=== PATIENT | female | born 1960 | race African-American/Black ===

== ENCOUNTER 2018-01-03 15:30 | Inpatient (IN) | payer BC ==
[2018-01-03] MEDS ORDERED: hydrALAZINE 20 MG/ML VIAL. IVP (15:45)
[2018-01-03] MEDS: amLODIPine BESYLATE 2.5 MG TABLET PO (16:13)
[2018-01-03] MEDS: amLODIPine BESYLATE 10 MG TABLET PO (16:31)
[2018-01-03 16:52] LABS: ADD MAN DIFF? NO
[2018-01-03] MEDS ORDERED: LABETALOL 20 MG/4 ML DISP.SYRIN. IVP (17:00)
[2018-01-03] MEDS: ISOSORBIDE MONONITRATE ER 30 MG TAB.ER.24H PO (17:00)
[2018-01-03 17:04] LABS: ALBUMIN 3.6 g/dL (3.4-5.0); ALBUMIN/GLOBULIN RATIO 0.7 (1.0-1.7); ALK PHOS 106 U/L (46-116); ALT (SGPT) 19 U/L (14-59); ANION GAP 5 (6-14); AST (SGOT) 18 U/L (15-37); BASO % 1 % (0-3); BLOOD UREA NITROGEN 14 mg/dL (7-20); BUN/CREATININE RATIO 14 (6-20); CALCIUM 9.4 mg/dL (8.5-10.1); CARBON DIOXIDE 29 mmol/L (21-32); CHLORIDE 107 mmol/L (98-107); EOS # 0.4 x10^3/uL (0.0-0.7); EOS % 5 % (0-3); GFR 69.1; GLUCOSE 85 mg/dL (70-99); HEMATOCRIT 34.5 % (36.0-47.0); HEMOGLOBIN 11.1 g/dL (12.0-15.5); LYMPH # 3.1 x10^3/uL (1.0-4.8); LYMPH % 37 % (24-48); MAGNESIUM 2.1 mg/dL (1.8-2.4); MEAN CORPUSCULAR HEMOGLOBIN 24 pg (25-35); MEAN CORPUSCULAR HGB CONC 32 g/dL (31-37); MEAN CORPUSCULAR VOLUME 75 fL (79-100); MONO # 0.6 x10^3/uL (0.0-1.1); MONO % 7 % (0-9); NEUT # 4.2 x10^3uL (1.8-7.7); NEUT % 50 % (31-73); PLATELET COUNT 247 x10^3/uL (140-400); POTASSIUM 3.8 mmol/L (3.5-5.1); RED BLOOD COUNT 4.58 x10^6/uL (3.50-5.40); RED CELL DISTRIBUTION WIDTH 15.7 % (11.5-14.5); SODIUM 141 mmol/L (136-145); TOTAL BILIRUBIN 0.5 mg/dL (0.2-1.0); TOTAL PROTEIN 8.5 g/dL (6.4-8.2); WHITE BLOOD COUNT 8.3 x10^3/uL (4.0-11.0)
[2018-01-03] MEDS: LISINOPRIL 20 MG TABLET PO (19:00)
[2018-01-03 19:57] LABS: BILIRUBIN,URINE NEGATIVE (NEG); CLARITY,URINE CLEAR; COLOR,URINE YELLOW; GLUCOSE,URINE NEGATIVE (NEG); NITRITE,URINE NEGATIVE (NEG); PH,URINE 7.5; PROTEIN,URINE NEGATIVE (NEG-TRACE)
[2018-01-03 20:16] LABS: BACTERIA,URINE 0 /HPF (0-FEW); RBC,URINE 0 /HPF (0-2); SQUAMOUS EPITHELIAL CELL,UR FEW /LPF; WBC,URINE RARE /HPF (0-4)
[2018-01-03] MEDS: ENOXAPARIN 40 MG/0.4 ML SYRINGE. SQ (20:36)
[2018-01-04 05:00] LABS: CHOLESTEROL 131 mg/dL (0-200); HDLC 45 mg/dL (40-60); LDLC 69 mg/dL (0-100); NON-HDL CHOLESTEROL 86 mg/dL (0-129); TRIGLYCERIDES 87 mg/dL (0-150); VLDLC 17 mg/dL (0-40)
[2018-01-04 05:01] LABS: CHOLESTEROL/HDL RATIO 2.9
[2018-01-04] MEDS: ACETAMINOPHEN 325 MG TABLET. PO (08:56)
[2018-01-04] MEDS: TRIAMTERENE/HCTZ 37.5/25MG TABLET. PO (08:58)
[2018-01-04] MEDS: amLODIPine BESYLATE 10 MG TABLET PO (08:58)
[2018-01-04] MEDS: ENOXAPARIN 40 MG/0.4 ML SYRINGE. SQ (08:59)
[2018-01-04] MEDS ORDERED: ANTI-COAG MONITOR BY PHARMACY. MC (09:15)
== END 2018-01-04 11:38 | disposition home or self-care (01) | DRG 78 ==
LOC: 2 NORTH 15:30
DX: I67.4 Hypertensive encephalopathy (principal); Z68.42 Body mass index [BMI] 45.0-49.9, adult; E66.01 Morbid (severe) obesity due to excess calories; I16.0 Hypertensive urgency; I10 Essential (primary) hypertension; M19.90 Unspecified osteoarthritis, unspecified site; Z79.1 Long term (current) use of non-steroidal anti-inflammatories (NSAID); Z83.3 Family history of diabetes mellitus; Z82.49 Family history of ischemic heart disease and other diseases of the circulatory system; Z84.1 Family history of disorders of kidney and ureter; Z82.5 Family history of asthma and other chronic lower respiratory diseases
CPT/HCPCS: 36415; 80053; 80061; 81001; 83735; 84443; 85025; 93005; 94799; J1650